=== PATIENT | female | born 1965 | race Caucasian/White ===

== ENCOUNTER 2020-11-18 12:37 | Emergency (ER) | payer MEDICARE, OTHER ==
[~2020-11-18 12:37] MED LIST: ABILIFY10 MG PO; BUPROPION XL150 MG PO; CYMBALTA60 MG PO; ELIMITE 5% CREA60 GM TOP; GABAPENTIN300 MG PO; GLUCOPHAGE 500500 MG PO; IBUPROFEN800 MG PO; LEVOFLOXACIN500 MG PO; METRONIDAZOLE500 MG PO; NORCO 7.5-3251 EACH PO; OMEPRAZOLE40 MG PO; SUBOXONE 8 MG-1 EACH SL; SYNTHROID 50 M50 MCG PO; TYLENOL WITH C1 EACH PO; VISTARIL25 MG PO; ZESTORETIC 20-1 EACH PO; ZOFRAN ODT 4 MG4 MG SL
[2020-11-18 15:54] LABS: HEMOGLOBIN 12.9 gm/dl (12.3-15.3); RED BLOOD COUNT 4.64 M/UL (4.00-5.10)
[2020-11-18 16:21] LABS: BUN/CREATININE RATIO 22 (0-10)
[2020-11-18] MEDS ORDERED: ZOFRAN4 MG PO (17:48)
== END 2020-11-18 17:56 | disposition home or self-care (01) ==
LOC: ER1 12:37
PROVIDERS: Physician Assistant Medical
DX: E11.649 Type 2 diabetes mellitus with hypoglycemia without coma (principal); J44.9 Chronic obstructive pulmonary disease, unspecified; E07.9 Disorder of thyroid, unspecified; I10 Essential (primary) hypertension; Z90.710 Acquired absence of both cervix and uterus; F17.210 Nicotine dependence, cigarettes, uncomplicated
CPT/HCPCS: 71045; 80053; 82550; 82553; 83874; 83880; 84484; 85025; 93005; 94664; 99285

== ENCOUNTER 2021-03-15 10:25 | Emergency (ER) | payer MEDICARE, OTHER ==
[~2021-03-15 10:25] MED LIST changes: +ZOFRAN4 MG PO
[2021-03-15 11:32] LABS: HEMOGLOBIN 14.3 gm/dl (12.3-15.3); RED BLOOD COUNT 4.97 M/UL (4.00-5.10); WHITE BLOOD COUNT 7.7 K/UL (4.5-11.0)
[2021-03-15 11:53] LABS: BUN/CREATININE RATIO 16 (0-10)
[2021-03-15] MEDS ORDERED: DECADRON6 MG PO (13:25)
== END 2021-03-15 14:30 | disposition home or self-care (01) ==
LOC: ER1 10:25
PROVIDERS: Physician Assistant Medical
DX: Z23 Encounter for immunization (principal); U07.1 COVID-19; E66.01 Morbid (severe) obesity due to excess calories; E11.9 Type 2 diabetes mellitus without complications; J44.9 Chronic obstructive pulmonary disease, unspecified; Z90.710 Acquired absence of both cervix and uterus; F17.210 Nicotine dependence, cigarettes, uncomplicated; Z90.49 Acquired absence of other specified parts of digestive tract
CPT/HCPCS: 36600; 71045; 80053; 82803; 85025; 87040; 96374; 99285; J1100; M0243

== ENCOUNTER → 2021-03-27 | Outpatient (CLI) | payer MEDICARE, OTHER ==
[~2021-03-27] MED LIST changes: +DECADRON6 MG PO
[2021-03-27 18:59] LABS: RED BLOOD COUNT 4.72 M/UL (4.00-5.10)
[2021-03-27 19:18] LABS: BUN/CREATININE RATIO 13 (0-10)
== END ==
LOC: LAB 17:32
DX: M25.522 Pain in left elbow (principal); E78.2 Mixed hyperlipidemia; R53.83 Other fatigue; R73.9 Hyperglycemia, unspecified
CPT/HCPCS: 36415; 73502; 80053; 80061; 83036; 84443; 85027

== ENCOUNTER 2021-03-30 19:47 | Emergency (ER) | payer MEDICARE, OTHER | END 2021-03-30 22:21 | disposition home or self-care (01) | LOC: ER1 19:47 | DX: R10.84 Generalized abdominal pain (principal); E11.9 Type 2 diabetes mellitus without complications; I10 Essential (primary) hypertension; K21.9 Gastro-esophageal reflux disease without esophagitis; Z86.19 Personal history of other infectious and parasitic diseases; F17.210 Nicotine dependence, cigarettes, uncomplicated; Z90.49 Acquired absence of other specified parts of digestive tract; Z90.710 Acquired absence of both cervix and uterus; Z90.89 Acquired absence of other organs; Z20.822 Contact with and (suspected) exposure to COVID-19 | CPT/HCPCS: 99284; Q9967; U0002 ==